=== PATIENT | male | born 1940 | race Caucasian/White ===

== ENCOUNTER 2016-08-14 07:52 | Inpatient (IN) | payer MEDICARE ==
[~2016-08-14] VITALS: Ht 170.2 cm; Wt 80.8 kg
[2016-08-17] MEDS ORDERED: LISI20TA3 PO (08:30)
[2016-08-17] MEDS ORDERED: ASPI81CH CHEW (08:31)
[2016-08-17] MEDS ORDERED: FISHCAP4 PO (08:31)
[2016-08-17] MEDS ORDERED: MULT1TAB46 PO (08:32)
--- NOTE | 2016-08-26 21:13 | MH ---
cc: MANNIE MCNEAL DATE OF ADMISSION 08/27/2016 ADMISSION DIAGNOSIS Osteoarthritis of the left hip. HISTORY This patient is a 75-year-old male with severe arthritis of the left hip. Investigative studies show evidence of severe arthritis and subtle findings suspicious for avascular necrosis. The patient has had a previous right hip replacement arthroplasty performed in [place] years ago. The patient has been taking iawj-cse-[id number] medications for a long time. He uses a cane. He had previous hip replacement on the right that was done in 1994 and revised in 2004 and did well with both of those surgeries. He came under my care approximately 3 months ago. He has had continued conservative care including physical therapy, altered activities and changing his medications including Diclofenac. He is having such severe pain he now presents for surgical treatment. PAST MEDICAL HISTORY, SOCIAL HISTORY AND FAMILY HISTORY System see attached notes. REVIEW OF SYSTEMS See attached notes. PHYSICAL EXAMINATION VITAL SIGNS: 5 feet 8 inches, 170 pounds BMI 25.8, blood pressure 130/70. HEENT: Normocephalic, atraumatic. Pupils equal, round, reactive to light and accommodation. Extraocular motions intact. NECK: Supple. CHEST: Clear. HEART: Regular rate and rhythm. ABDOMEN: Soft, nontender, normoactive sounds. EXTREMITIES: The left hip has severe pain with range of motion. Range of motion with flexion is 80, extension 0, internal rotation 20, external rotation 30, abduction 20, adduction 10. Strength is otherwise normal. He has a Trendelenburg sign on the left. NEUROLOGIC: Examination is within normal limits. IMPRESSION 1. Osteoarthritis left hip, severe 2. 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 3. Status post right total hip replacement arthroplasty, remote. PLAN Left total hip replacement arthroplasty, direct anterior exposure. CONSENT The risks of surgery including infection, bleeding, loss of motion, continued pain, need for further surgery, neurologic and vascular injury. The patient understands these issues and wishes to press on with surgery as outlined above. MD ROXANNA Hardy/KK /6:18 PM /9:02 PM
[2016-08-27 07:30] VITALS: BP 130/78; PULSE 73; RESP 16; TEMP 97.8; O2SAT 95
[2016-08-27] MEDS ORDERED: POVIDONE IODINE 7.5% SCRUB 118 ML BOTTLE TOPICAL SCH (07:30)
[2016-08-27] MEDS ORDERED: POVIDONE IODINE 5% (ANTISEPSIS KIT) 4 APPLICATIONS EACH NARE PRN (07:30)
[2016-08-27] MEDS ORDERED: VANCOMYCIN 1000 MG/NS 250 ML (for <70 kg) IV SCH ×2 (07:30)
[2016-08-27] MEDS ORDERED: ceFAZolin 2 GM PREMIX 50 ML IV SCH (07:30)
[2016-08-27] MEDS ORDERED: SODIUM CHLORID 0.9% 500 ML IV PRN (07:30)
[2016-08-27] MEDS ORDERED: LACTATED RINGER'S 1000 ML IV PRN (07:30)
[2016-08-27] MEDS ORDERED: INSULIN HUMAN REGULAR 1,000 UNITS/10 ML VIAL SQ PRN (07:30)
[2016-08-27] MEDS ORDERED: CHLORHEXIDINE GLUCONATE 2 % 1 PACK (2 CLOTHS) TOPICAL PRN (07:30)
[2016-08-27] MEDS ORDERED: METOPROLOL TARTRATE 25 MG TAB PO PRN (07:30)
[2016-08-27] MEDS ORDERED: GENTAMICIN SULFATE 80 MG/2 ML VIAL ONE (08:12)
[2016-08-27] MEDS ORDERED: TRANEXAMIC ACID INJ 800 MG in SODIUM CHLORIDE 0.9% INJ 100 ML IV SCH (08:30)
[2016-08-27] MEDS ORDERED: BUPIVACAINE LIPOSO PF 1.3% INJ 20 ML in SODIUM CHLORIDE 0.9% INJ 40 ML P-ARTICULR SCH (09:00)
[2016-08-27] MEDS ORDERED: WALKER WHEELS/F1 MIS (09:33)
[2016-08-27] MEDS ORDERED: COMMODE 3-IN-11 MIS (09:33)
--- NOTE | 2016-08-27 09:35 | HHI.FF ---
Face to Face Verification Diagnosis: (1) Osteoarthritis of left hip (2) Left hip pain Physical Therapy Gait training, Safety evaluation, Transfer training, bed to chair Hip: Total hip, Protocol: Left, Progress to weight bearing Left LE Weight Bearing: WB as tolerated Additional Instructions PT 4 days/wk for 2 weeks. WBAT LLE. Anterior eduardo precautions. Gait training / transfers. Nursing RN Days per Week: 2 x Week(s): 1 Dressing Changes: Do not change dressing Additional Instructions Hold dressing changes unless saturated or erythema. Vitals assessment. I have seen patient Fredy Brito on 08/27/16. My clinical findings support the need for the requested home health care services because: Limited ability to care for self High risk of falls I certify that my clinical findings support that this patient is homebound because: Post-op weakness Unsteady gait/balance Kenya Juan Aug 27, 2016 09:35
[2016-08-27] MEDS: LACTATED RINGER'S 1000 ML INJ 1,000 ML IV SCH ×2 (11:27→21:45)
[2016-08-27] MEDS ORDERED: MORPHINE SULFATE 8 MG/ML INJ IM PRN (11:30)
[2016-08-27] MEDS ORDERED: MISCELLANEOUS PHARMACY INFORMATION XX ONE (11:30)
[2016-08-27] MEDS ORDERED: ACETAMINOPHEN/HYDROcodone 325 MG/7.5 MG TAB PO PRN ×2 (11:30)
[2016-08-27] MEDS ORDERED: MISCELLANEOUS NURSING INFORMATION XX PRN (11:30)
[2016-08-27] MEDS ORDERED: NALOXONE HCL 0.4 MG/ML AMP IV PRN (11:30)
[2016-08-27] MEDS ORDERED: MORPHINE SULFATE 30 MG/30 ML PCA IV SCH (11:30)
[2016-08-27] MEDS ORDERED: SODIUM CHLORIDE 0.9% FLUSH 5 ML FLUSH IVF PRN (11:30)
--- NOTE | 2016-08-27 11:34 | PD.OP ---
cc: Greg Hoyos MD Operative Report Date of Surgery: Aug 27, 2016 Preoperative Diagnosis: Osteoarthritis left hip, severe Possible avascular necrosis, left hip Postoperative Diagnosis: Same Procedure: Left total hip replacement arthroplasty, direct anterior exposure Anesthesia: Spinal Surgeon: Greg Hoyos Transaction Advisory Services Manager(s): NICOL Stover Operation and Findings: EBL: 200 cc INDICATION: This patient presents with significant hip pain related to severe osteoarthritis of the left hip with acetabular dysplasia and flattening of the femoral head likely consistent with avascular necrosis.. Despite extensive conservative care this patient continues to be painful and now presents for surgical treatment. NOTE: Sadie Stover PA-C was present for the entire surgical procedure as my first calender worker. In my medical opinion her skill and care was necessary for the proper management of this patient. COMPONENTS: COMPANY: [employer] CUP: [place], 58 mm, 100 series, gription surface LINER: Altrx 36 mm, neutral STEM: [place]ail, size 16, standard offset, hydroxyapatite-coated HEAD: 36 mm, +5, metal, 12/14 taper PROCEDURE: This patient was brought to the operating room and anesthetized in the supine position and positioned on the fracture table with both legs held extended. The left hip and leg was scrubbed with alcohol followed by Hibiclens followed by ChloraPrep and draped sterilely. Antibiotics were given within routine time window and a timeout was done. A 4 inch incision was made starting 2 cm distal and 2 cm lateral to the anterior superior iliac spine. The fascia sveta was opened longitudinally. The interval between the fascia sveta and the rectus was opened down to the capsule of the hip joint. Retractors were positioned allowing good visualization of the capsule. This was opened longitudinally and flaps were created. Stay sutures were utilized. Exposure was excellent. The neck was cut at the proper location using fluoroscopy as a guide. The head was removed. Deep retractors were positioned allowing good visualization of the acetabulum. Acetabulum was deepened down to the floor starting with a proper size reamer and reaming up to 57 mm. A trial was utilized. Fluoroscopy was used to check position and confirmed satisfactory alignment. The rim was reamed with a 58 mm reamer and the final cup was positioned in approximately 20 of anteversion and 40-45 of abduction. Position was satisfactory. A single hole eliminator was positioned followed by the final liner. The lifting hook was utilized. The leg was dropped to the floor, maximally externally rotated and brought across the midline. Retractors were positioned. A box osteotome was utilized followed by progressive broaching to the proper stem size. Trial reduction showed excellent alignment and fit. With 60 of external rotation the leg was dropped to the floor without evidence of anterior subluxation. The wound was irrigated. The final stem was inserted and was found to be very stable. The final reduction using the final head. Stability was as previously noted. Intraoperative x-rays were taken. The wound was irrigated copiously. Hemostasis was controlled. Local anesthesia was utilized. The capsule was repaired with #2 Tycron sutures. The fascia sveta was repaired with running 0 PDS on a loop. Subcutaneous tissue was approximated with 2-0 Vicryl and skin with running intradermal 3-0 Vicryl followed by Steri-Strips. A sterile dressing was applied. The patient was awakened and taken to the recovery room in satisfactory condition. FINDINGS: There was severe osteoarthritis of the left hip. There was flattening of the femoral head which had the appearance of collapse from avascular necrosis with some remodeling. The final solution was excellent. Stability was excellent. No complication was appreciated. Greg Hoyos MD Aug 27, 2016 11:34
[2016-08-27] MEDS ORDERED: XARE10TA PO (11:36)
[2016-08-27] MEDS ORDERED: HYDR-3580 PO (11:36)
[2016-08-27] MEDS ORDERED: Post-op Orders (for Pharmacy) MISC XX ONE (11:45)
[2016-08-27] MEDS ORDERED: MIDAZOLAM HCL 2 MG/2 ML VIAL ONE (11:57)
[2016-08-27 12:00] VITALS: BP 112/66; PULSE 76; RESP 18; TEMP 97; O2SAT 95
[2016-08-27] MEDS ORDERED: PROPOFOL 200 MG/20 ML AMP IV ONE (12:00)
[2016-08-27] MEDS ORDERED: DO NOT ADM ANY ANTICOAGULANT DRUGS PRN (12:00)
[2016-08-27] MEDS ORDERED: ePHEDrine/NS 25 MG/5 ML SYR IV ONE (12:00)
[2016-08-27] MEDS ORDERED: PHENYLEPH/NS 1000 MCG/10 ML SYR IV ONE (12:00)
[2016-08-27] MEDS ORDERED: *morphine SULFATE 8 MG/ML PERIprocedure ONLY ONE (12:04)
[2016-08-27 14:20] VITALS: BP 112/66; PULSE 76; RESP 18; TEMP 97; O2SAT 95
[2016-08-27] MEDS: PCA - TOTAL MG MORPHINE DELIVERED PER SHIFT SCH ×2 (14:40→21:45)
--- NOTE | 2016-08-27 15:10 | RADRPT ---
EXAM DATE/TIME: 08/27/2016 10:13 [facility] COMPARISON: FLUOROSCOPY PORTABLE UP TO 1HR, August 27, 2016, 0:00. INDICATIONS : Left total hip replacement. MEDICAL HISTORY : Hypertension. Arthritis. SURGICAL HISTORY : Total hip replacement, right. ENCOUNTER: Initial ACUITY: 1 day PAIN SCORE: Non-responsive. LOCATION: Left hip. FINDINGS: 2 views of the left hip are provided. The patient is post left hip arthroplasty. The orthopedic hardw are is in excellent position. CONCLUSION: 1. Orthopedic hardware in excellent position. Jason Thomas MD on August 27, 2016 at 15:07 Board Certified Radiologist. This report was verified electronically.
[2016-08-27 16:00] VITALS: BP 123/62; PULSE 73; RESP 16; TEMP 97; O2SAT 94
[2016-08-27 17:25] VITALS: O2SAT 95
[2016-08-27] MEDS: SODIUM CHLORIDE 0.9% FLUSH 5 ML FLUSH IVF SCH (20:07)
[2016-08-27] MEDS: MAGNESIUM HYDROXIDE SUSP 30 ML CUP PO SCH (20:07)
[2016-08-27] MEDS: SENNOSIDES 8.6 MG TAB PO SCH (20:07)
[2016-08-27 20:30] VITALS: BP 113/53; PULSE 86; RESP 17; TEMP 97.6; O2SAT 93
[2016-08-27] MEDS ORDERED: diphenhydrAMINE HCL 25 MG CAP PO ONE (21:45)
[2016-08-27] MEDS ORDERED: ACETAMINOPHEN 500 MG CPLT PO ONE (21:45)
[2016-08-28] VITALS (9 sets, daily range): BP systolic 104–139; BP diastolic 49–72; PULSE 75–98; RESP 16–17; TEMP 98.3–101.3; O2SAT 92–99
[2016-08-28] MEDS: PCA - TOTAL MG MORPHINE DELIVERED PER SHIFT SCH (04:52)
[2016-08-28 07:13] LABS: HEMATOCRIT 35.2 % (39.0-51.0); REVIEW FLAG FINAL
[2016-08-28] MEDS: MAGNESIUM HYDROXIDE SUSP 30 ML CUP PO SCH ×2 (07:45→20:09)
[2016-08-28] MEDS: SODIUM CHLORIDE 0.9% FLUSH 5 ML FLUSH IVF SCH ×2 (07:46→20:09)
--- NOTE | 2016-08-28 08:05 | HHI.DCPOC ---
Discharge Care Plan Diagnosis: (1) Left hip pain (2) Osteoarthritis of left hip Your Health Problems Are: Incision/Drains Swelling Goals to Promote Your Health * To prevent worsening of your condition and complications * To maintain your health at the optimal level Directions to Meet Your Goals Take your medications as prescribed Follow your dietary instruction Follow activity as directed Keep your appointments as scheduled Take your immunizations and boosters as scheduled If your symptoms worsen call your PCP, if no PCP go to Urgent Care Center or Emergency Room Smoking is Dangerous to Your Health. Avoid second hand smoke Call the 24-hour hour crisis hotline for domestic abuse at Kenya Juan Aug 28, 2016 08:05
--- NOTE | 2016-08-28 08:08 | HHI.DS ---
Discharge Summary Admission Date Aug 27, 2016 at 06:49 Discharge Date: Aug 29, 2016 Admitting Diagnosis see below Diagnosis: (1) Left hip pain Diagnosis: Principal (2) Osteoarthritis of left hip Diagnosis: Principal Procedures Left total hip arthroplasty, Direct anterior approach Brief History This is a 75 year old male patient with a multiyear history of left hip pain. He sought out medical treatment when his function began to decline. Imaging studies were performed and he was found to have moderate to severe osteoarthritis. Conservative measures were pursued for a period of time but he continued to decline. Surgical treatment was eventually recommended in the form of left total hip arthroplasty and he elected to move forward. He presents for the above procedure. CBC/BMP: 08/28/16 0615 Significant Findings Laboratory Tests Test 08/28/16 06:15 Hemoglobin 12.1 GM/DL (13.0-17.0) Hematocrit 35.2 % (39.0-51.0) Hospital Course Surgical treatment was performed on the day of admission without complication. He recovered well in PACU and was transferred to the orthopaedic floor. Pain was controlled with IV and oral medication. DVT prophylaxis was initiated pod# 1. He was compliant with physical therapy and all restrictions. After 2 days he was found to be stable and discharged home with home health care with instruction to continue his therapy, pursue a high fiber diet for the next 5 days and to continue his xarelto for 25 days. Pt Condition on Discharge: Stable Discharge Disposition: Disch w/ Home Health Serv Discharge Instructions Diet Instructions: As Tolerated, No Restrictions, High Fiber Diet Activities You Can Perform: Weight Bearing as Williams Activities to Avoid: Strenuous Activity Additional Activity Instruc.: Anterior SOFIA procotol New Medications: Commode 3-in-1 (Commode 3-in-1) 1 Mis Mis 1 EA .ROUTE DIRECTED #1 Ref 0 EA Walker with Front Wheels (Walker with Front Wheels) 1 Mis Mis 1 EA .ROUTE DIRECTED #1 Ref 0 EA Hydrocodone-Acetaminophen (Hydrocodone-Acetaminophen) 7.5-325 mg Tab 1 TAB PO Q4H PRN PAIN LESS THAN 5 ON SCALE #50 TAB Rivaroxaban (Xarelto) 10 Mg Tab 10 MG PO Q24H Prevent Blood Clot #25 TAB Continued Medications: Aspirin (Aspirin) 81 Mg Chew 81 MG CHEW DAILY Ref 0 TAB Fish Oil-Cholecalciferol (Fish Oil + D3) 1,200-1,000 Mg-Unit Cap 1 CAP PO DAILY Nutritional Supplement #30 Ref 0 CAP Lisinopril-Hctz (Lisinopril-Hctz) 20-25 Mg Tab 1 TAB PO DAILY Blood Pressure Management #30 Ref 0 TAB Multiple Vitamin (Multi Vitamin Daily) 1 Tab Tab 1 MG PO DAILY Kenya Juan Aug 28, 2016 08:08
--- NOTE | 2016-08-28 08:10 | PD.ORT.PN ---
Subjective Subjective Remarks Moderate left hip pain but doing 'ok'. No new radiating leg pain. No CP, SOB or abd pain. Questions about surgery. Pleased overall. Prefers d/c home w [facility] at this time. Objective Vitals Vital Signs Date Time Temp Pulse Resp B/P Pulse Ox O2 Delivery O2 Flow Rate FiO2 08/28/16 07:49 Room Air 08/28/16 07:35 99 21 08/28/16 05:11 93 3.00 08/28/16 04:58 Nasal Cannula 3.00 08/28/16 04:52 16 08/28/16 04:30 101.0 82 17 124/66 93 08/28/16 00:25 99.6 81 17 104/49 92 08/27/16 21:45 16 08/27/16 20:30 97.6 86 17 113/53 93 08/27/16 17:25 95 21 08/27/16 16:00 97.0 73 16 123/62 94 08/27/16 14:40 18 08/27/16 14:20 97.0 76 18 112/66 95 08/27/16 14:00 64 18 118/56 98 Room Air 08/27/16 13:00 58 13 101/55 97 Nasal Cannula 3 08/27/16 12:30 58 16 100/50 98 Nasal Cannula 3 08/27/16 12:19 15 08/27/16 12:15 58 21 104/55 97 Nasal Cannula 3 08/27/16 12:00 62 14 119/57 97 Nasal Cannula 3 08/27/16 11:50 97.5 68 23 102/57 93 Nasal Cannula 3 I/O 08/27/16 08/27/16 08/27/16 08/28/16 08/28/16 08/28/16 07:00 15:00 23:00 07:00 15:00 23:00 Intake Total 1178 ml 698 ml 831 ml Output Total 700 ml 500 ml 625 ml Balance 478 ml 198 ml 206 ml Intake Oral 240 ml 240 ml IV Total 178 ml 458 ml 591 ml Other 1000 ml Output Urine Total 500 ml 500 ml 625 ml Estimated Blood Loss 200 ml # Bowel Movements 0 Result Diagram: 08/28/16 0615 Procedures Left total hip arthroplasty, Direct anterior approach Objective Remarks Sitting up in bed, NAD VSS LLE Hip dressing c/d/i, no significant drainage, mild swelling, no erythema +motor at, +sens, +nvi neg homans bilat Assessment & Plan Ortho Post Op Day #: 1 Problem List: (1) Left hip pain (2) Osteoarthritis of left hip Assessment and Plan pod#1 s/p L SOFIA, anterior D/C [employer] - change to po pain meds. D/C khan cath. Xarelto 10mg qd for 25 days. PT - WBAT LLE. Anterior sofia protocol. Hold dressing changes unless saturated. D/C planning, likely [facility] wednesday. F2F written. DME written. Kenya Juan Aug 28, 2016 08:10
[2016-08-28] MEDS: LISINOPRIL 20 MG TAB PO SCH (08:12)
[2016-08-28] MEDS: HYDROCHLOROTHIAZIDE 25 MG TAB PO SCH (08:12)
[2016-08-28] MEDS ORDERED: NON-FORMULARY DRUG (Lisinopril-Hctz 1 TAB) PO SCH (09:00)
[2016-08-28] MEDS: RIVAROXABAN 10 MG TAB PO SCH (10:57)
[2016-08-28] MEDS: LACTATED RINGER'S 1000 ML INJ 1,000 ML IV SCH ×2 (12:27→21:38)
[2016-08-28] MEDS: ACETAMINOPHEN 325 MG TAB PO PRN (18:26)
[2016-08-28] MEDS: SENNOSIDES 8.6 MG TAB PO SCH (20:08)
[2016-08-29 04:25] VITALS: BP 121/58; PULSE 85; RESP 17; TEMP 100.8; O2SAT 92
[2016-08-29] MEDS: ACETAMINOPHEN 325 MG TAB PO PRN (05:27)
[2016-08-29 08:00] VITALS: BP 122/68; PULSE 79; RESP 18; TEMP 97.8; O2SAT 96
[2016-08-29] MEDS: HYDROCHLOROTHIAZIDE 25 MG TAB PO SCH (08:38)
[2016-08-29] MEDS: SODIUM CHLORIDE 0.9% FLUSH 5 ML FLUSH IVF SCH (08:40)
[2016-08-29] MEDS: MAGNESIUM HYDROXIDE SUSP 30 ML CUP PO SCH (08:40)
[2016-08-29] MEDS: LISINOPRIL 20 MG TAB PO SCH (08:40)
[2016-08-29] MEDS: RIVAROXABAN 10 MG TAB PO SCH (11:30)
[2016-08-29 12:00] VITALS: BP 122/60; PULSE 86; RESP 18; TEMP 98.6; O2SAT 94
--- NOTE | 2016-08-29 12:37 | PD.ORT.PN ---
Subjective Subjective Remarks no issues. going home today Objective Vitals Vital Signs Date Time Temp Pulse Resp B/P Pulse Ox O2 Delivery O2 Flow Rate FiO2 08/29/16 08:00 97.8 79 18 122/68 96 08/29/16 04:25 100.8 85 17 121/58 92 08/28/16 23:35 98.4 79 17 109/57 93 08/28/16 20:30 98.4 75 17 117/61 92 08/28/16 16:00 101.3 82 16 130/66 93 I/O 08/28/16 08/28/16 08/28/16 08/29/16 08/29/16 08/29/16 07:00 15:00 23:00 07:00 15:00 23:00 Intake Total 831 ml 600 ml 480 ml 240 ml Output Total 625 ml 850 ml 350 ml 675 ml Balance 206 ml -250 ml 130 ml -435 ml Intake Oral 240 ml 600 ml 480 ml 240 ml IV Total 591 ml Output Urine Total 625 ml 850 ml 350 ml 675 ml # Bowel Movements 0 0 0 Result Diagram: 08/28/16 0615 Procedures Left total hip arthroplasty, Direct anterior approach Objective Remarks Sitting up in bed, NAD VSS LLE Hip dressing c/d/i, no significant drainage, mild swelling, no erythema +motor at, +sens, +nvi neg homans bilat Assessment & Plan Problem List: (1) Left hip pain (2) Osteoarthritis of left hip Assessment and Plan pod#2 s/p L SOFIA, anterior no c/o. no CP/SOB Xarelto 10mg qd for 25 days. PT - WBAT LLE. Anterior sofia protocol. Hold dressing changes unless saturated. D/C planning, home today w HH F2F written. DME written. Sam Anderson Jr., MD Aug 29, 2016 12:37
== END 2016-08-29 13:56 | disposition home health service (06) | DRG 470 ==
LOC: HSDI 08-27 06:49 → N06A 08-27 14:30
PROVIDERS: ADMIT Orthopaedic Surgery Orthopaedic Surgery of the Spine; ATTEND Orthopaedic Surgery Orthopaedic Surgery of the Spine
PROC: 0SRB02A Replacement of Left Hip Joint with Metal on Polyethylene Synthetic Substitute, Uncemented, Open Approach (ICD-10-PCS; principal; 2016-08-27 09:07)
DX: M16.12 Unilateral primary osteoarthritis, left hip (principal); M87.9 Osteonecrosis, unspecified; I10 Essential (primary) hypertension; Z96.641 Presence of right artificial hip joint; Z87.891 Personal history of nicotine dependence
CPT/HCPCS: 73502; 76000; 85014; 85018; 86850; 86900; 86901; 86920; 94150; C1776; C9290; J0690; J1580; J2250; J2270; J2370; J3010; J3370; J7050; J7120

== ENCOUNTER → 2016-08-17 | Outpatient (CLI) | payer MEDICARE ==
[~2016-08-17] MED LIST: ASPI81CH CHEW; COMMODE 3-IN-11 MIS; FISHCAP4 PO; HYDR-3580 PO; LISI10TA PO; LISI20TA3 PO; MULT1TAB46 PO; WALKER WHEELS/F1 MIS; XARE10TA PO
[2016-08-17 09:04] LABS: BASOPHIL % 0.6 % (0.0-2.0); EOSINOPHIL # 0.2 TH/MM3 (0-0.4); HEMATOCRIT 42.4 % (39.0-51.0); HEMO FLAGS DIFF FINAL; LYMPH % 25.1 % (9.0-44.0); LYMPHOCYTE # 1.7 TH/MM3 (1.0-4.8); MEAN CELL VOLUME 88.6 FL (80.0-100.0); MEAN CORPUSCULAR HEMOGLOBIN 29.8 PG (27.0-34.0); MEAN CORPUSCULAR HGB CONC 33.6 % (32.0-36.0); MONO % 10.2 % (0.0-8.0); NEUT % 61.1 % (16.0-70.0); PLATELET COUNT 185 TH/MM3 (150-450); RED BLOOD COUNT 4.79 MIL/MM3 (4.50-5.90); RED CELL DISTRIBUTION WIDTH 13.6 % (11.6-17.2); WHITE BLOOD COUNT 6.6 TH/MM3 (4.0-11.0)
[2016-08-17 09:10] LABS: APTT (PATIENT) 27.5 SEC (24.3-30.1); PROTHROMBIN TIME - PATIENT 11.4 SEC (9.8-11.6)
[2016-08-17 09:26] LABS: BLOOD, URINE TRACE (NEG); GLUCOSE,URINE NEG (NEG); KETONE, URINE NEG (NEG); NITRITE,URINE NEG (NEG); PH, URINE 6.5 (5.0-8.5); URINE COLOR YELLOW (YELLW/STRAW)
[2016-08-17 09:36] LABS: BICARBONATE 29.9 MEQ/L (21.0-32.0); POTASSIUM 5.1 MEQ/L (3.5-5.1)
[2016-08-17 10:16] LABS: RBC, URINE 0-3 /hpf (0-3); WBC, URINE 0-2 /hpf (0-5)
[2016-08-17 10:17] LABS: COMMENT (UR) CULT NOT INDICATED; CULTURE IF INDICATED CULT NOT INDICATED
== END ==
LOC: CPRE 08:05
PROVIDERS: ATTEND Orthopaedic Surgery Orthopaedic Surgery of the Spine
DX: Z01.812 Encounter for preprocedural laboratory examination (principal); Z79.01 Long term (current) use of anticoagulants; M16.12 Unilateral primary osteoarthritis, left hip
CPT/HCPCS: 36415; 80048; 81001; 85025; 85610; 85730